=== PATIENT | female | born 2000 | race Hispanic/Latino ===

== ENCOUNTER 2019-07-20 15:52 | Emergency (ER) | payer SELFPAY ==
[2019-07-20 16:52] LABS: #Lymphocytes 1.3 thou/uL (1.20-3.40); #Monocytes 1.1 thou/uL (0.11-0.59); #Neutrophils 12.4 thou/uL (1.40-6.50); %Basophils 0.3 % (0.0-1.0); %Eosinophils 0.1 % (0.0-10.0); %Lymphocytes 8.9 % (28.0-48.0); %Monocytes 7.1 % (0.0-4.0); %Neutrophils 83.7 % (31.0-61.0); Mean Corpuscular HGB CONC 35.1 g/dL (32.0-36.0); Mean Corpuscular Hemoglobin 30.2 pg (25.0-35.0); Mean Corpuscular Volume 86.1 fL (78.0-98.0); Mean Platelet Volume 7.3 fL (7.4-10.4); Platelet Count 243 thou/uL (130-400); RBC Distribution Width 11.4 % (11.5-14.5); White Blood Cell (WBC) Count 14.8 thou/uL (4.8-10.8)
[2019-07-20 17:14] LABS: ALT (SGPT) 18 U/L (8-55); AST (SGOT) 24 U/L (5-34); Albumin 3.8 g/dL (3.5-5.0); Alkaline Phosphatase 79 U/L (40-150); Anion Gap 12 mmol/L (10-20); BUN (Urea Nitrogen) 13 mg/dL (7.0-18.7); Bilirubin, Total 0.3 mg/dL (0.2-1.2); Calc. Creatinine Clearance 0 mL/min (70-130); Calcium 8.9 mg/dL (7.8-10.44); Carbon Dioxide 21 mmol/L (22-29); Chloride 103 mmol/L (98-107); Estimated GFR-MDRD Greater than 90; Globulin 2.9 g/dL (2.4-3.5); Glucose 111 mg/dL (70-105); Potassium 3.3 mmol/L (3.5-5.1); Protein, Total 6.7 g/dL (6.0-8.3); Sodium 133 mmol/L (136-145)
[2019-07-20 17:21] LABS: Bilirubin Small (Negative); Glucose, Urine (Dipstick) Negative (Negative); Leukocyte Negative (Negative); Nitrite Negative (Negative); Protein, Urine (Dipstick) > or equal to 300 mg/dL (Neg-Trace); Urobilinogen 0.2 mg/dL (Less than 2)
[2019-07-20 17:22] LABS: Clarity Hazy (Clear)
[2019-07-20 17:24] LABS: Blood, Urine Large (Negative); Pregnancy Test - Urine (BHCG) POSITIVE (Negative); Pregu Control Background? CLEAR/WHITE (CLR/WHITE); Pregu Control Bar Appear? YES (CONTROL BAR); RBC/HPF Greater than 50 HPF (0-3); Specific Gravity 1.055 (1.002-1.036)
[2019-07-20 17:25] LABS: Bacteria/HPF Rare-Few HPF (None Seen); Other Microscopic Description Less than 2 mL rec'd; Squamous Epithelial 0-3 HPF (0-3)
[2019-07-20] MEDS ORDERED: Acetaminophen 500 MG TAB ONE (18:02)
--- NOTE | 2019-07-20 18:12 | ULT ---
EXAM: Pelvic ultrasound HISTORY: female with pelvic pain and vaginal bleeding COMPARISON: None TECHNIQUE: Multiple grayscale and color Doppler images were obtained in a transabdominal and transvag inal pelvic ultrasound. Spectral analysis of the Doppler waveforms of the ovaries were performed. FINDINGS: CERVIX: No evidence of nabothian cysts. UTERUS: Normal in size without focal abnormality. No intrauterine is visualized. ENDOMETRIAL STRIPE: Thickened and heterogenous in appearance. 2.9cm in width No free fluid is seen in the pelvis. RIGHT OVARY: Normal flow without focal mass. LEFT OVARY: Normal flow without focal mass. IMPRESSION: No evidence of intrauterine or ectopic .
== END 2019-07-20 19:45 | disposition home or self-care (01) ==
LOC: ERS 15:52
DX: O99.89 Other specified diseases and conditions complicating pregnancy, childbirth and the puerperium (principal); R10.30 Lower abdominal pain, unspecified; Z3A.08 8 weeks gestation of pregnancy
CPT/HCPCS: 76856; 80053; 81003; 81015; 81025; 84702; 85025; 86900; 86901

== ENCOUNTER 2019-08-02 18:16 | Emergency (ER) | payer SELFPAY | END 2019-08-02 20:48 | disposition home or self-care (01) | LOC: ERS 18:16 | DX: O03.9 Complete or unspecified spontaneous abortion without complication (principal) | CPT/HCPCS: 36415; 84702; 99283 ==